=== PATIENT | female | born 1985 | race Caucasian/White ===

== ENCOUNTER 2017-12-10 11:56 | Emergency (ER) | payer SELFPAY ==
[2017-12-10] MEDS ORDERED: Ondansetron ODT TAB* 4 MG PO ONE (12:22)
[2017-12-10] MEDS ORDERED: Acetaminophen TAB* 325 MG PO ONE (12:23)
--- NOTE | 2017-12-10 13:04 | RAD ---
HISTORY: head injury on Xarelto COMPARISONS: None TECHNIQUE: Multiple contiguous axial CT scans were obtained of the head without intravenous contrast. FINDINGS: HEMORRHAGE/INFARCT: There is no hemorrhage or acute infarct. MASSES/SHIFT: There is no mass or shift. EXTRA-AXIAL SPACES: There are no extra-axial fluid collections. SULCI AND VENTRICLES: The sulci and ventricles are normal in size and position for the patient's stated age. CEREBRUM: There are no focal parenchymal abnormalities. BRAINSTEM: There are no focal parenchymal abnormalities. CEREBELLUM: There are no focal parenchymal abnormalities. VESSELS: The vessels are grossly normal. PARANASAL SINUSES: There is postsurgical change to the paranasal sinuses. ORBITS: The orbits are unremarkable. BONES AND SOFT TISSUE: No bone or soft tissue abnormalities are noted. OTHER: None IMPRESSION: NO ACUTE INTRACRANIAL PATHOLOGY.
--- NOTE | 2017-12-10 13:16 | ED ---
Head Injury - HPI Summary HPI Summary: Patient is a 32 y/o F w/ c/o head injury and MENDOZA onsetting 2 hours ago. She states she tripped and fell down 12 stairs at her friend's house. Patient reports that she feels a lump at the right side of the back of her head. She also reports nausea, vomiting, dizziness, and some lower back, left shoulder, and LLE pain. On triage, pain is rated 8/10, nothing is noted to aggravate/ alleviate Sx, and patient reports taking ASA and tylenol at 1200. Patient has PMHx of factor 5 Leiden. No bleeding or bruising reported. PMHx of asthma is also noted. Patient is on xarelto. FHMx of factor 5 in father, breast cancer in mother. Home medications and allergies reviewed. LNMP was 11/13/17, no chance of is reported. - History Of Current Complaint Chief Complaint: EDHeadInjury Stated Complaint: HEAD INJURY/FALL Time Seen by Provider: 12/10/17 12:09 Hx Obtained From: Patient Mechanism Of Injury: Fall From Height Of: - fell from top of 12 stairs Onset/Duration: Started Hours Ago - 2 hours, Still Present Onset of Pain: Hours - 2 hours Severity Currently: Severe - 8/10 Pain Intensity: 8 Pain Scale Used: 0-10 Numeric - 8/10 Location of Head Injury: Occipital - right sided Aggravating Factor(s): Other: - nothing Alleviating Factor(s): Other: - nothing Associated Signs And Symptoms: Nausea, Vomiting, Headache, Other: - dizziness, left shoulder pain, lower back pain, and LLE pain - Allergies/Home Medications Allergies/Adverse Reactions: Allergies Allergy/AdvReac Type Severity Reaction Status Date / Time ibuprofen Allergy Hives Verified 12/10/17 12:13 Iodinated Contrast- Oral and Allergy Hives Verified 12/10/17 12:15 IV Dye ketorolac [From Toradol] Allergy Hives Verified 12/10/17 12:12 moxifloxacin [From Avelox] Allergy Itching Verified 12/10/17 12:13 Penicillins Allergy Anaphylatic Verified 12/10/17 12:13 Shock tramadol Allergy Hives Verified 12/10/17 12:12 Home Medications: Home Medications Xarelto 10 mg (*) 10 mg PO DAILY 12/10/17 [History Confirmed 12/10/17] PMH/Surg Hx/FS Hx/Imm Hx Endocrine/Hematology History: Reports: Hx Blood Disorders - factor 5 Respiratory History: Reports: Hx Asthma Sensory History: Denies: Hx Legally Blind, Hx Deafness Opthamlomology History: Denies: Hx Legally Blind EENT History: Denies: Hx Deafness Infectious Disease History: No Infectious Disease History: Denies: Traveled Outside the [place] in Last 30 Days - Family History Known Family History: Positive: Blood Disorder - dad has factor 5 , Other - mother has breast CA - Social History Alcohol Use: None Substance Use Type: Reports: None Smoking Status (MU): Never Smoked Tobacco Review of Systems Positive: Vomiting, Nausea Positive: Other - left shoulder pain, LLE pain, lower back pain Positive: Other - bump on right occipital region; no other bruising/bleeding noted. Neurological: Other - dizziness, head injury Positive: Headache All Other Systems Reviewed And Are Negative: Yes Physical Exam - Summary Physical Exam Summary: Appearance: Well appearing, no pain distress Skin: warm, dry, reflects adequate perfusion Head/face: small hematoma, 2 cm across right occipital; all else normal Eyes: EOMI, NICOLASA ENT: normal Neck: supple, non-tender Respiratory: CTA, breath sounds present Cardiovascular: RRR, pulses symmetrical Abdomen: non-tender, soft Bowel Sounds: present Musculoskeletal: normal, strength/ROM intact Neuro: normal, sensory motor intact, A&Ox3, no aphasia, cranial nerves intact; GCS 15 Triage Information Reviewed: Yes Vital Signs On Initial Exam: Initial Vitals Temp Pulse Resp BP Pulse Ox 98.2 F 69 16 127/86 97 12/10/17 12:07 12/10/17 12:07 12/10/17 12:07 12/10/17 12:07 12/10/17 12:07 Vital Signs Reviewed: Yes Diagnostics - Vital Signs Vital Signs Temp Pulse Resp BP Pulse Ox 12/10/17 12:07 98.2 F 69 16 127/86 97 - Laboratory Lab Statement: Any lab studies that have been ordered have been reviewed, and results considered in the medical decision making process. - CT CT HEAD CT Interpretation: No Acute Changes CT Interpretation Completed By: Radiologist - no acute intracranial pathology; this report was reviewed by ED physician. Re-Evaluation - Re-Evaluation First Eval Re-Evaluation Time: 13:14 Comment: Patient was informed of CT and lab results. Patient began to be purposefully slur her speech and she is noted to be using her hand to droop her mouth. Patient will be discharged to home with follow up instructions. Head Injury Course/Dx Course Of Treatment: Patient presents with minor injury to her head on Xarelto anticoagulant. She is neurologically normal here with a normal gait and speech. She had normal head CT and a bizarre affect. She complained of headache and was treated for that. She was discharged to follow up closely with her primary care physician. She had times would demonstrate dysarthric speech which seemed to be voluntary in nature. This isn't consistent with her fall, etc. The patient was asking for an IV and narcotics which do not seem appropriate. Beauregard iSTOP on the patient was obtained and there was no prior opiate prescriptions under this name and date of . There is concern for possible conversion versus malingering though the patient did not press the issue and was discharged neurologically intact with clear speech. - Diagnoses Provider Diagnoses: Fall from steps, Closed head injury with concussion Discharge - Sign-Out/Discharge Documenting (check all that apply): Patient Departure - discharge - Discharge Plan Condition: Stable Disposition: HOME Prescriptions: Promethazine TAB* [Phenergan Tab*] 25 mg PO Q6H PRN #20 tab PRN Reason: headache/nausea Patient Education Materials: Concussion (ED) Referrals: [facility] [Outside] Additional Instructions: Call Dr. Rosario in [place] today to schedule prompt follow-up. Quiet, darkened rooms may help. Avoid fine print reading and electronic devices. No sporting activities. Return if worse, new symptoms, or other concerns as discussed. - Billing Disposition and Condition Condition: STABLE Disposition: Home - Attestation Statements Document Initiated by Scribe: Yes Documenting Scribe: Bruno Vogt Provider For Whom Roberto is Documenting (Include Credential): Silver Rosales MD Scribe Attestation: Bruno Nunez, scribed for Silver Rosales MD on 12/10/17 at 1720. Scribe Documentation Reviewed: Yes Provider Attestation: The documentation as recorded by the Bruno morgan accurately reflects the service I personally performed and the decisions made by me, Silver Rosales MD
[2017-12-10 13:23] VITALS: BP 106/71
--- OUTSIDE RECORDS SUMMARY | 2017-12-10 13:24 | XMS REPORT | Continuity of Care Document ---
:1986 Author Organization [facility] Address [address] [place] [address] Care Team Providers Name Role Phone Unavailable Primary Care Physician Unavailable Insurance Providers Payer Name Policy Number Subscriber Name Relationship SELF PAY BARRETT PERRY SELF (18) Advance Directives Directive Response Recorded Date/Time DO YOU HAVE A HEALTHCARE PROXY?: N 11/15/17 4:45pm Chief Complaint and Reason for Visit Reason for Visit PAIN IN LEFT LEG, SOB Problems No problem information available. Medications No medication information available. Social History Status Date Recorded Not November 15, 2017 Hospital Discharge Instructions No hospital discharge instructions. Plan of Care Discharge Date 11/15/17 Disposition TRANSFER [facility] ([facility] Prescriptions See Medications Section Functional Status Query Response Date Recorded What is your primary language?: Samoan November 15, 2017 4:45pm Allergies, Adverse Reactions, Alerts No allergy information available. Immunizations No Known History of Immunizations. Vital Signs No Known Vital Signs Results. Results Laboratory Results Test Name Result Units Flags Reference Collection Result Comments Date/Time Date/Time Urine Color KELLEE 11/15/17 11/15/17 8:27pm 8:31pm Urine Appearance TURBID 11/15/17 11/15/17 8:27pm 8:31pm Specific [place] 1.025 1.001-1.035 11/15/17 11/15/17 8:27pm 8:31pm Urine Leukocyte TRACE NEGATIVE 11/15/17 11/15/17 Esterase 8:27pm 8:31pm Urine Nitrite NEGATIVE NEGATIVE 11/15/17 11/15/17 8:27pm 8:31pm Urine pH 5.5 5.0-9.0 11/15/17 11/15/17 8:27pm 8:31pm Urine Protein TRACE mg/dL H NEGATIVE 11/15/17 11/15/17 8:27pm 8:31pm Urine Glucose NEGATIVE mg/dL NEGATIVE 11/15/17 11/15/17 8:27pm 8:31pm Urine Ketones NEGATIVE mg/dL NEGATIVE 11/15/17 11/15/17 8:27pm 8:31pm Urine Urobilinogen NORMAL mg/dL 0-1 11/15/17 11/15/17 8:27pm 8:31pm Urine Bilirubin NEGATIVE NEGATIVE 11/15/17 11/15/17 8:27pm 8:31pm Urine Blood 4+ H NEGATIVE 11/15/17 11/15/17 8:27pm 8:31pm Urine Microscopic TNTC /hpf H 0-3 11/15/17 11/15/17 RBC 8:27pm 8:42pm Urine Microscopic 3-5 /hpf 0-3 11/15/17 11/15/17 WBC 8:27pm 8:42pm Urine Epithelial 2+ /hpf 11/15/17 11/15/17 Cells 8:27pm 8:42pm Urine Crystals NONE SEEN /hpf 0 11/15/17 11/15/17 8:27pm 8:42pm Urine Bacteria 1+ NONE SEEN 11/15/17 11/15/17 8:27pm 8:42pm Urine Mucus NONE SEEN NEGATIVE 11/15/17 11/15/17 8:27pm 8:42pm Prothrombin Time 9.3 SECONDS 8.9-11.1 11/15/17 11/15/17 6:00pm 6:29pm INR International 0.89 0.87-1.06 11/15/17 11/15/17 Normalized Ratio 6:00pm 6:29pm Partial 23.0 SECONDS 20.3-30.06 11/15/17 11/15/17 Thromboplastin 6:00pm 6:29pm Time - Celio D-Dimer 0.37 mg/LFEU 0.19-0.50 11/15/17 11/15/17 6:00pm 6:44pm White Blood Count 5.8 K/mm3 4.0-10.0 11/15/17 11/15/17 5:38pm 6:08pm Red Blood Count 4.04 M/mm3 4.00-5.50 11/15/17 11/15/17 5:38pm 6:08pm Hemoglobin 12.1 gm/dL 12.0-16.0 11/15/17 11/15/17 5:38pm 6:08pm Hematocrit 35.9 % L 36.0-48.8 11/15/17 11/15/17 5:38pm 6:08pm Mean Corpuscular 88.9 fl 80-96 11/15/17 11/15/17 Volume 5:38pm 6:08pm Mean Corpuscular 30.0 pg 27.0-31.0 11/15/17 11/15/17 Hemoglobin 5:38pm 6:08pm Mean Corpuscular 33.7 g/dl 32.0-36.0 11/15/17 11/15/17 Hgb Concent Diff 5:38pm 6:08pm Red Cell 13.3 % 10.0-14.5 11/15/17 11/15/17 Distribution Width 5:38pm 6:08pm Platelet Count 282 K/mm3 172-450 11/15/17 11/15/17 5:38pm 6:08pm Mean Platelet 8.6 fl L 9.0-13.0 11/15/17 11/15/17 Volume 5:38pm 6:08pm Granulocytes % 60.6 % 50-80.0 11/15/17 11/15/17 (Auto) 5:38pm 6:08pm Lymphocytes % 30.4 % 25.0-50.0 11/15/17 11/15/17 5:38pm 6:08pm Monocytes % 9.0 % 2.0-10.0 11/15/17 11/15/17 5:38pm 6:08pm Eosinophils % 0.0 % 0-5.0 11/15/17 11/15/17 5:38pm 6:08pm Basophils % 0.0 % 0.0-2.0 11/15/17 11/15/17 5:38pm 6:08pm Granulocytes # 3.5 K/mm3 2.0-8.00 11/15/17 11/15/17 5:38pm 6:08pm Lymphocytes # 1.8 K/mm3 1.0-5.0 11/15/17 11/15/17 5:38pm 6:08pm Monocytes # 0.5 K/mm3 0.10-1.20 11/15/17 11/15/17 5:38pm 6:08pm Eosinophils # 0.0 K/mm3 0.0-0.5 11/15/17 11/15/17 5:38pm 6:08pm Basophils # 0.0 K/mm3 0.0-0.2 11/15/17 11/15/17 5:38pm 6:08pm Glucose Level 101 mg/dL 74-106 11/15/17 11/15/17 5:38pm 6:08pm Blood Urea 8 mg/dL -11/15/17 11/15/17 Nitrogen 5:38pm 6:08pm Creatinine 0.8 mg/dL 0.6-1.0 11/15/17 11/15/17 5:38pm 6:08pm Sodium Level 140 mmol/L 136-145 11/15/17 11/15/17 5:38pm 6:08pm Potassium Level 3.5 mmol/L 3.5-5.1 11/15/17 11/15/17 5:38pm 6:08pm Chloride Level 104 mmol/L 98-107 11/15/17 11/15/17 5:38pm 6:08pm Carbon Dioxide 25 mmol/L 21-32 11/15/17 11/15/17 Level 5:38pm 6:08pm Calcium Level 8.3 mg/dL L 8.5-10.1 11/15/17 11/15/17 5:38pm 6:08pm Anion Gap 11.0 mmol/L -11/15/17 11/15/17 5:38pm 6:08pm Estimated GFR 83 mL/min 11/15/17 11/15/17 GFR IS CALCULATED IN mL/min/ 1.73m2 (MDRD) 5:38pm 6:08pm NORMAL FUNCTION: >90 MILDLY DECREASED: 60-89 MILDY TO MODERATELY DECREASED: 45-59 MODERATELY TO SEVERELY DECREASED: 30-44 SEVERELY DECREASED: 15-29 RENAL FAILURE: <15 Aspartate Amino 9 U/L L 15-37 11/15/17 11/15/17 Transf (AST/SGOT) 5:38pm 6:08pm Alanine 19 U/L 12-78 11/15/17 11/15/17 Aminotransferase 5:38pm 6:08pm (ALT/SGPT) Alkaline 55 U/L 46-116 11/15/17 11/15/17 Phosphatase 5:38pm 6:08pm Total Bilirubin 0.1 mg/dL L 0.2-1.0 11/15/17 11/15/17 5:38pm 6:08pm Total Protein 6.6 g/dl 6.4-8.2 11/15/17 11/15/17 5:38pm 6:08pm Albumin 3.4 gm/dL 3.4-5.0 11/15/17 11/15/17 5:38pm 6:08pm Magnesium Level 1.8 mg/dL 1.8-2.4 11/15/17 11/15/17 5:38pm 6:05pm -------- Patient: BARRETT PERRY Unit#: [id number] : [birth year] Age: 32 Sex: F Provider: JAIR PATRICK Room/Bed: Status: REG ER Report#: [id number] Date: 11/15/17 Signed DAVIS PHYSICIAN ORDER Date: 11/15/17 [facility] [address] [place] [id number] Patient: BARRETT PERRY Sex: F : 1985 Age: 32y Arrrival: 11/15/2017 15:49 Departure: Disposition: Transfer to Other Facility WEIGHT:108.8 kg (S) HEIGHT:63 inches (S) BMI:42.5 ALLERGIES: Avalox, Cefzil, Morphine, Motrin, Penicillin, Shellfish-derived Products, Toradol, Tramadol CHIEF COMPLAINT: SOB LAB ORDERS Order Description Priority Entered Acknowledged Initialed CBC w Diff STAT 17:32 11/15/2017 Jair Kaur, Karissa'd: 17:35 Flor Hierholzer R.N. 18:14 Flor Hierholzer R.N. CMP STAT 17:32 11/15/2017 Jair Kaur, Karissa'd: 17:35 Flor Hierholzer R.N. 18:14 Flor Hierholzer R.N. PT with INR STAT 17:33 11/15/2017 Karissa Chapa'd: 17:35 Flor Hierholzer R.N. 18:14 Flor Hierholzer R.N. PTT STAT 17:33 11/15/2017 Jair Kaur, Karissa'd: 17:35 Flor Hierholzer R.N. 18:14 Flor Hierholzer R.N. Magnesium STAT 17:33 11/15/2017 Jair Kaur, Karissa'd: 17:35 Flor Hierholzer R.N. 18:14 Flor Hierholzer R.N. <<STRICKEN ENTRY-- TSH --END STRIKE>> <<STRICKEN ENTRY-- STAT --END STRIKE>> <<STRICKEN ENTRY-- 17:33 11/15/2017 Jair Kaur, - -END STRIKE>> Ack'd: 17:35 Flor Bates R.NEnriqueta Cancelled: Other 17:38 Jair Kaur <<STRICKEN ENTRY-- T4 Free --END STRIKE>> <<STRICKEN ENTRY- - STAT --END STRIKE>> <<STRICKEN ENTRY-- 17:33 11/15/2017 Jair Kaur, - -END STRIKE>> Ack'd: 17:35 Flor Bates R.NEnriqueta Cancelled: Other 17:38 Jair Kaur Urinalysis, Culture if indicated (CLEAN CATCH, URINE) 17:33 11/15/2017 Jair Kaur, Ack'd: 17:35 Flor Bates R.N. <<STRICKEN ENTRY-- Lyme Disease Antibodies --END STRIKE>> << STRICKEN ENTRY-- STAT --END STRIKE>> <<STRICKEN ENTRY-- 17:33 11/15/2017 Jair Kaur, --END STRIKE>> Ack'd: 17:35 Flor Bates R.NEnriqueta Cancelled: Other 17:38 Jair Kaur D-Dimer STAT 17:48 11/15/2017 Jair Kaur, Ack'd: 17:52 Flor Bates R.N. 18:14 Flor Bates R.NEnriqueta DIAGNOSTIC STUDY ORDERS Order Description Priority Entered Acknowledged Initialed MEDICATION/IV/DRIP/FLUID ORDERS Order Description Priority Entered Acknowledged Initialed <<STRICKEN ENTRY-- DuoNeb Neb Tx 2 unit doses (NOW) --END STRIKE>> <<STRICKEN ENTRY-- --END STRIKE>> <<STRICKEN ENTRY-- 17:32 11/15/2017 Jair Kaur, --END STRIKE>> Ack'd: 17:35 Flor Faust.NEnriqueta Cancelled: Other 17:38 Jair Kaur <<STRICKEN ENTRY-- Xopenex Neb Tx 1.25 mg (NOW, Nursing-Document waste of any partial dose) --END STRIKE>> <<STRICKEN ENTRY-- --END STRIKE>& gt; <<STRICKEN ENTRY-- 17:32 11/15/2017 Jair Kaur, --END STRIKE> > Ack'd: 17:35 Flor Faust.Norris Cancelled: Other 17:38 Jair Kaur Fentanyl IVP 75 mcg (HIGH ALERT MEDICATION, NOW, Nursing-Document waste of any partial dose, Please contact Pharmacy to mix medication M-W-[id number] 8-4) STAT 18:03 11/15/2017 Jair Kaur, Karissa'd: 18:16 Chloe Rodríguez R.N. Zofran IVP 8 mg (NOW, Nursing-Document waste of any partial dose) 18:03 11/15/2017 Karissa Chapa'd: 18:16 Chloe Rodríguez R.N. GENERAL ORDERS Order Description Priority Entered Acknowledged Initialed This document has not been locked and should not be saved in the medical record Procedures Procedure Status Date Provider(s) CHEST 1 VIEW Active 11/15/17 JAIR PTARICK Encounters Encounter Location Arrival/Admit Date Discharge/Depart Date Attending Provider Departed [place] 11/15/17 3:49pm 11/15/17 8:51pm JAIR PATRICK [facility] @
== END 2017-12-10 13:22 | disposition home or self-care (01) ==
LOC: ED 11:56
DX: S06.0X9A Concussion with loss of consciousness of unspecified duration, initial encounter (principal); W10.9XXA Fall (on) (from) unspecified stairs and steps, initial encounter; Y92.099 Unspecified place in other non-institutional residence as the place of occurrence of the external cause; D68.51 Activated protein C resistance
CPT/HCPCS: 70450; 99282; A9270-GY